=== PATIENT | female | born 1935 | race Caucasian/White ===

== ENCOUNTER 2017-07-07 15:21 | Emergency (ER) | payer MEDICARE ==
[~2017-07-07] VITALS: Ht 154.9 cm; Wt 83.5 kg
[2017-07-07] MEDS ORDERED: AMOXICILLIN500 MG PO (16:24)
[2017-07-07] MEDS ORDERED: CENTRUM ADULTS1 EACH PO (16:25)
[2017-07-07] MEDS ORDERED: ELIQUIS5 MG PO (16:26)
[2017-07-07] MEDS ORDERED: DILTIAZEM ER60 MG PO (16:26)
[2017-07-07] MEDS ORDERED: HYDROCHLOROTHIA25 MG PO (16:27)
[2017-07-07] MEDS ORDERED: LASIX40 MG PO (16:27)
[2017-07-07] MEDS ORDERED: XALATAN2.5 ML OPTH (16:28)
[2017-07-07] MEDS ORDERED: LEVOTHYROXINE125 MCG PO (16:29)
[2017-07-07] MEDS ORDERED: LIPITOR80 MG GT (16:29)
[2017-07-07] MEDS ORDERED: TOPROL XL50 MG PO (16:30)
[2017-07-07] MEDS ORDERED: OMEPRAZOLE20 MG PO (16:31)
--- NOTE | 2017-07-08 07:43 | EKG ---
[facility] [address] [place] [id number] Signed Atrial fibrillation Left axis deviation Voltage criteria for left ventricular hypertrophy Inferior infarct , age undetermined ST \T\ T wave abnormality, consider lateral ischemia Abnormal ECG No previous ECGs available Confirmed by ZEE HOGAN MD ([id number] on 07/08/2017 7:43:03 AM Electronically Signed By: ZEE HOGAN MD 07/08/17 0743 PATIENT NAME: AMINA LEROY KARLI Electrocardiogram DATE OF : 31 PHYSICIAN: ZEE HOGAN MD REPORT #: [id number] REPORT IS CONFIDENTIAL AND NOT TO BE RELEASED WITHOUT AUTHORIZATION
== END 2017-07-07 16:55 | disposition home or self-care (01) ==
LOC: ED 15:21
DX: R07.9 Chest pain, unspecified (principal); I50.9 Heart failure, unspecified; E03.9 Hypothyroidism, unspecified; I48.91 Unspecified atrial fibrillation; Z95.5 Presence of coronary angioplasty implant and graft; Z88.0 Allergy status to penicillin; Z88.5 Allergy status to narcotic agent; Z79.899 Other long term (current) drug therapy
CPT/HCPCS: 71010; 80053; 84484; 85025; 93005; 93010; 99283